=== PATIENT | male | born 1975 | race Caucasian/White ===

== ENCOUNTER 2024-03-15 15:45 | Outpatient (REF) | payer OTHER, SELFPAY ==
[2024-03-15 18:19] LABS: MANUAL DIFF FLAG NO
[2024-03-15 18:27] LABS: Basophils Percent Auto 0.5 % (0-2); Eosinophils Absolute Auto 0.1 X10*3/uL (0.0-0.4); Eosinophils Percent Auto 2.3 % (0-4); Hematocrit 40.4 % (42.0-52.0); Hemoglobin 14.2 g/dl (14.0-18.0); Imm Gran Abs Auto 0.02 X10*3/uL (0.00-0.03); Imm Gran Pct Auto 0.4 % (0.0-0.4); Lymphocytes Absolute Auto 1.9 X10*3/uL (1.2-4.9); Lymphocytes Percent Auto 33.6 % (20-40); Mean Corpuscular HGB Conc 35.1 g/dl (31.0-36.0); Mean Corpuscular Hemoglobin 28.8 pg (27.0-33.0); Mean Corpuscular Volume 81.9 fL (80.0-98.0); Mean Platelet Volume 11.1 fL (9.4-12.4); Monocytes Absolute Auto 0.4 X10*3/uL (0.1-1.2); Monocytes Percent Auto 6.8 % (2-11); Neutrophils Absolute Auto 3.2 x10*3/uL (2.0-8.3); Neutrophils Percent Auto 56.4 % (45-73); Platelet Count 220 X10*3/uL (160-400); Red Blood Count 4.93 X10*6/uL (4.60-5.80); Red Cell Distribution Width 12.8 % (11.0-16.0); White Blood Count 5.7 X10*3/uL (4.8-10.8)
[2024-03-15 18:52] LABS: Estimated Average Glucose 97 mg/dL
[2024-03-15 18:54] LABS: Alanine Aminotransferase 19 U/L (0-40); Albumin Level 4.4 g/dL (3.5-5.0); Alkaline Phosphatase 55 U/L (39-117); Anion Gap 12 (12-20); Aspartate Amino Transferase 18 U/L (5-37); Bilirubin Total 0.7 mg/dL (0.0-1.0); Blood Urea Nitrogen 14 mg/dL (9-16); C Reactive Protein < 0.10 mg/dL (< or = 0.50); Calcium 9.7 mg/dL (8.4-10.2); Carbon Dioxide 25 mmol/L (22-29); Chloride 108 mmol/L (96-108); Estimated Glomerular Filt Rate > 60; Gamma Glutamyl Transpeptidase 22 U/L (11-51); Glucose Random 93 mg/dL (60-115); Iron 94 mcg/dL (45-160); Lipase 34 U/L (8-78); Percent Iron Saturation 32 % (15-50); Sodium 141 mmol/L (135-145); Total Iron Binding Capacity 292 mcg/dL (228-428); Total Protein 6.8 g/dL (6.5-8.0); Unsaturated Iron Binding 198 ug/dL
[2024-03-15 19:07] LABS: Ferritin 174 ng/mL (20-250); Free T4 (Free Thyroxine) 0.93 ng/dL (0.71-1.85); Thyroid Stimulating Hormone 1.39 uIU/mL (0.32-4.0)
[2024-03-15 19:19] LABS: Folate 6.9 ng/mL (> or = 4.0); Vitamin B12 527 pg/mL (200-900)
[2024-03-15 19:47] LABS: Erythrocyte Sedimentation Rate 2 MM/HR (0-15)
[2024-03-16 02:44] LABS: Amylase 56 U/L (28-100)
[2024-03-17 18:09] LABS: Thyroid Peroxidase Antibodies 1 IU/mL (<9)
== END 2024-03-15 15:46 | disposition home or self-care (01) ==
LOC: HO.MANLDS 15:45
PROVIDERS: Visit Provider Physician Assistant
DX: R19.7 Diarrhea, unspecified (principal); R25.1 Tremor, unspecified; Z13.1 Encounter for screening for diabetes mellitus; Z13.89 Encounter for screening for other disorder
CPT/HCPCS: 36415; 80053; 82150; 82607; 82728; 82746; 82977; 83036; 83540; 83690; 83735; 84439; 84443; 85025; 85652; 86140; 86376